=== PATIENT | male | born 1935 | race Caucasian/White ===

== ENCOUNTER → 2018-02-15 | Outpatient (CLI) | payer OTHER ==
--- NOTE | 2018-03-07 21:10 | EEG ---
DATE OF SERVICE: 02/15/2018 EEG NUMBER: [id number] PURPOSE: This is an 82-year-old male patient with history of abnormal movements. EEG was requested to help rule out seizures. METHODS: Twenty electrodes were applied according to the international 10-20 electrode placement system. EKG monitoring, hyperventilation, intermittent photic stimulation, monopolar and bipolar montages were routinely utilized. The record was obtained on a digital system with video monitoring. MEDICATIONS: No anti-seizure medication. FINDINGS: 1. Background: The patient was recorded in the awake and drowsy states. No sleep state was recorded. The overall background amplitude is 10-30 microvolts. A posterior dominant rhythm of 8-9 Hz is observed. 2. Abnormalities: No specific epileptiform discharge or electrographic seizure is seen. No focal or diffuse slowing. 3. Activation: Hyperventilation was performed with good efforts and normal response. Intermittent photic stimulation was performed with photic driving. No specific epileptiform discharge or electrographic seizure is induced by hyperventilation or intermittent photic stimulation. IMPRESSION: This EEG is a normal study for the awake and drowsy states. No sleep state was recorded. No focal, lateralizing, specific epileptiform discharge or electrographic seizure is seen. GLENN WEBBER MD DR: FLORENCE/tracy JOB#: [id number] / [id number] JENNIFER
== END | disposition home or self-care (01) ==
LOC: RT 08:45
PROVIDERS: ATTEND Psychiatry & Neurology Neurology
DX: R25.9 Unspecified abnormal involuntary movements (principal); R06.4 Hyperventilation
CPT/HCPCS: 95816